=== PATIENT | female | born 1955 | race Caucasian/White ===

== ENCOUNTER → 2016-10-31 | Outpatient (CLI) | payer OTHER | LOC: FIMAGING 12:25 | DX: Z12.31 Encounter for screening mammogram for malignant neoplasm of breast (principal) | CPT/HCPCS: G0202 ==

== ENCOUNTER → 2017-04-03 | Outpatient (CLI) | payer OTHER | LOC: FIMAGING 10:55 | PROVIDERS: ATTEND Specialist | DX: R05 Cough (principal); M47.892 Other spondylosis, cervical region; M43.12 Spondylolisthesis, cervical region ==

== ENCOUNTER 2017-08-23 12:06 | Observation (INO) | payer OTHER ==
--- NOTE | 2017-08-23 12:20 | EDPHY ---
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 Started feeling bad on Thursday 5 days ago with feeling shaky and having chills followed by a progressively worsening cough. She was started on Tamiflu on Thursday morning by her but she presents today with worsening cough and shortness of breath. Symptoms are severe and worse with exertion. Associated with fever and chills and headache sore throat nausea and decreased oral intake. Not better with Tamiflu. REVIEW OF SYSTEMS: Eye: no change in vision ENT: HPI no ear symptoms Cardiac: no chest pain or syncope Pulmonary: HPI Abdomen: no vomiting, diarrhea, abdominal pain, decreased oral intake Musculoskeletal: Diffuse myalgias Skin: no rash Neuro: no headache Constitutional: Fever and chills : no urinary symptoms A comprehensive 10 point review of systems is otherwise negative aside from elements mentioned in the history of present illness. PAST MEDICAL HISTORY: Asthma Social history: Nonsmoker, nurse, no recent foreign travel General Appearance: Alert and conversant, cooperative. Eyes: No scleral icterus. ENT, Mouth: Normal mucous membranes. No trismus, slight pharyngeal erythema, no exudate Respiratory: Bilateral expiratory wheezes without focal sounds. Speaks in full sentences. No stridor. Cardiovascular: Regular rate and rhythm. Gastrointestinal: Abdomen is soft and non tender. Neurological: Alert, face symmetric, normal motor and sensory in extremities. Skin: Warm and dry, no rashes. Musculoskeletal: No neck stiffness. No calf tenderness. Psychiatric: Not agitated. Emergency Department course/MDM: Patient noted to be febrile and hypoxemic. Plan for lactate, blood cultures, chest x-ray, respiratory pathogen panel, IV fluid hydration. She will be treated for wheezing with IV Solu-Medrol and DuoNeb and albuterol nebulizer treatment. 1300: Left lower lobe pneumonia, will admit with ceftriaxone and azithromycin. Has SIRS criteria but not severe sepsis. Discussed with Parker Pineda. Admission for pneumonia with hypoxemia and severe wheezing. Presumed community- acquired infection. Smoking Status: Never smoked Constitutional: Initial Vital Signs Temperature (C) 38.4 C H 08/23/17 12:10 Heart Rate 114 H 08/23/17 12:10 Respiratory Rate 20 08/23/17 12:10 Blood Pressure 116/91 H 08/23/17 12:10 O2 Sat (%) 87 L 08/23/17 12:10 O2 Delivery Mode Nasal Cannula O2 (L/minute) 6 Allergies/Adverse Reactions: SEASONAL Allergy (Mild, Uncoded 08/23/17 12:09) Congestion Home Medications: Medication Instructions Recorded Albuterol 08/23/17 Symbicort 80-4.5 Mcg Inhaler 08/23/17 Medical Decision Making - Diagnostics Imaging Results: Imaging Impressions Chest X-Ray 08/23/17 12:36 Impression: Left lower lobe and lingular pneumonia. Imaging: I viewed and interpreted images myself Differential Diagnosis: Differential considered including but not limited to influenza, pneumonia, bronchitis, asthma exacerbation. - Data Points Laboratory Results: Laboratory Results 08/23/17 12:33 08/23/17 12:33 08/23/17 08/23/17 08/23/17 12:33 12:33 12:33 WBC RBC Hgb Hct MCV MCH MCHC RDW Plt Count MPV Neut % (Auto) Lymph % (Auto) Dixon % (Auto) Eos % (Auto) Baso % (Auto) Nucleat RBC Rel Count Absolute Neuts (auto) Absolute Lymphs (auto) Absolute Monos (auto) Absolute Eos (auto) Absolute Basos (auto) Absolute Nucleated RBC Immature Gran % Immature Gran # PT 13.4 SEC SEC (12.0-15.0) INR 1.00 (0.83-1.16) APTT 31.7 SEC SEC (23.0-38.0) VBG Lactic Acid 1.5 mmol/L mmol/L (0.7-2.1) Sodium 139 mEq/L mEq/L (134-144) Potassium 4.6 mEq/L mEq/L (3.5-5.2) Chloride 100 mEq/L mEq/L (97-110) Carbon Dioxide 24 mEq/l mEq/l (22-31) Anion Gap 15 mEq/L mEq/L (8-16) BUN 12 mg/dL mg/dL (7-23) Creatinine 0.7 mg/dL mg/dL (0.6-1.0) Estimated GFR > 60 Glucose 131 mg/dL H mg/dL (70-100) Calcium 9.2 mg/dL mg/dL (8.5-10.4) Total Bilirubin 0.8 mg/dL mg/dL (0.1-1.4) Specimen Hemolysis 115 08/23/17 12:33 WBC 5.91 10^3/uL 10^3/uL (3.80-9.50) RBC 4.24 10^6/uL 10^6/uL (4.18-5.33) Hgb 13.2 g/dL g/dL (12.6-16.3) Hct 37.3 % L % (38.0-47.0) MCV Pending MCH Pending MCHC Pending RDW Pending Plt Count 207 10^3/uL 10^3/uL (150-400) MPV Pending Neut % (Auto) Pending Lymph % (Auto) Pending Dixon % (Auto) Pending Eos % (Auto) Pending Baso % (Auto) Pending Nucleat RBC Rel Count Pending Absolute Neuts (auto) Pending Absolute Lymphs (auto) Pending Absolute Monos (auto) Pending Absolute Eos (auto) Pending Absolute Basos (auto) Pending Absolute Nucleated RBC Pending Immature Gran % Pending Immature Gran # Pending PT INR APTT VBG Lactic Acid Sodium Potassium Chloride Carbon Dioxide Anion Gap BUN Creatinine Estimated GFR Glucose Calcium Total Bilirubin Specimen Hemolysis Medications Given: Discontinued Medications Albuterol (Proventil Neb) 3 ml IH EDNOW ONE Stop: 08/23/17 12:37 Last Admin: 08/23/17 12:49 Dose: 3 ml Albuterol/Ipratropium (Duoneb) 3 ml IH EDNOW ONE Stop: 08/23/17 12:37 Last Admin: 08/23/17 12:49 Dose: 3 ml Sodium Chloride (Ns) 1,000 mls @ 0 mls/hr IV ONCE ONE; Wide Open PRN Reason: Protocol Stop: 08/23/17 12:37 Last Admin: 08/23/17 12:49 Dose: 1,000 mls Azithromycin 500 mg/ Dextrose 255 mls @ 255 mls/hr IV EDNOW ONE PRN Reason: Protocol Stop: 08/23/17 13:54 Last Admin: 08/23/17 13:55 Dose: 255 mls Ceftriaxone Sodium/Dextrose (Rocephin 1 Gm (Premix)) 50 mls @ 100 mls/hr IV EDNOW ONE PRN Reason: Protocol Stop: 08/23/17 13:23 Last Admin: 08/23/17 13:04 Dose: 50 mls Sodium Chloride (Ns) 2,200 mls @ 4,400 mls/hr 30 ml/kg infuse over 30 min ( 2200 ml) IV EDNOW ONE PRN Reason: Protocol Stop: 08/23/17 13:24 Last Admin: 08/23/17 13:06 Dose: 2,200 mls Methylprednisolone Sodium Succinate (Solu-Medrol) 125 mg IVP EDNOW ONE Stop: 08/23/17 12:37 Last Admin: 08/23/17 12:49 Dose: 125 mg Departure - Departure Disposition: [facility] Acute Clinical Impression: Pneumonia Qualifiers: Pneumonia type: due to unspecified organism Laterality: left Lung location: lower lobe of lung Qualified Code(s): J18.1 - Lobar pneumonia, unspecified organism Exacerbation of asthma Qualifiers: Asthma severity: moderate Asthma persistence: unspecified Qualified Code(s): J45.901 - Unspecified asthma with (acute) exacerbation Condition: Good
[2017-08-23] MEDS ORDERED: ONDANSETRON 4 MG/2 ML VIAL ONE (12:28)
[2017-08-23] MEDS ORDERED: methylPREDNISolone SOD SUCC 125 MG/2 ML VIAL IVP ONE (12:36)
[2017-08-23] MEDS ORDERED: ALBUTEROL 3 ML DEYVIAL IH ONE (12:36)
[2017-08-23] MEDS ORDERED: IPRATROPIUM/ALBUTEROL 3 ML DEYVIAL IH ONE (12:36)
[2017-08-23] MEDS ORDERED: NS 1,000 ML IV ONE (12:36)
[2017-08-23 12:47] LABS: PLATELET COUNT 207 10^3/uL (150-400)
[2017-08-23] MEDS ORDERED: NS 2,200 ML IV ONE (12:55)
[2017-08-23] MEDS ORDERED: AZITHROMYCIN IV 500 MG in D5W 250 ML IV ONE (12:55)
[2017-08-23 13:02] LABS: PROTIME(PATIENT) 13.4 SEC (12.0-15.0)
[2017-08-23] MEDS ORDERED: ALBUTEROL 3 ML DEYVIAL IH PRN (15:09)
[2017-08-23] MEDS ORDERED: IBUPROFEN 600 MG TAB PO PRN (15:20)
[2017-08-23] MEDS ORDERED: ONDANSETRON 4 MG/2 ML VIAL IVP PRN (15:20)
[2017-08-23] MEDS ORDERED: ONDANSETRON DISINTEGRATING 4 MG TAB PO PRN (15:20)
[2017-08-23] MEDS ORDERED: ACETAMINOPHEN 325 MG TAB PO PRN (15:20)
[2017-08-23] MEDS ORDERED: ZOLPIDEM TARTRATE 5 MG TAB PO PRN (15:20)
[2017-08-23] MEDS ORDERED: LORazepam 0.5 MG TAB PO PRN (15:20)
[2017-08-23] MEDS ORDERED: NS W/ 20 KCl/L 1,000 ML IV SCH (15:30)
--- NOTE | 2017-08-23 16:01 | GHP ---
[f rep st] HISTORY AND PHYSICAL DATE OF ADMISSION: 08/23/2017 CHIEF COMPLAINT: Cough and shortness of breath. HISTORY OF PRESENT ILLNESS: 61-year-old female, who is a nurse at [employer], who notes approximately 5 days ago, she began having chills and shaking, followed by a progressive developed cough. Four days prior to admission she started Tamiflu and has completed the course of Tamiflu today. In the last 4 days, she has continued to have a worsening cough and shortness of breath, despite the use of a Symbicort inhaler and the Tamiflu. She has associated fevers, chills and a sore throat and decreased oral intake. There is no nausea or vomiting. She denies chest pain, nausea, vomiting, although she does have a loss of appetite. There is no abdominal pain or pleuritic chest pain. She does have a slight sore throat. There has been no skin rash or joint disorders. PAST MEDICAL HISTORY: She has had a history of asthma and some allergies for the last year. She was treated with bronchodilators, but then the problem seemed to resolve in the last 6 months. She has not used a bronchodilator until this acute episode, when she began using a Symbicort inhaler without relief. There is no history of high blood pressure, diabetes, or renal problems. REVIEW OF SYSTEMS: A 10-point review of systems is otherwise negative, except as noted in the HPI. 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 The patient herself is a nonsmoker and does drink some alcohol. MEDICATIONS: Noted in the EMR. FAMILY HISTORY: Positive in that the patient's sister has severe asthma. There is no history of coronary disease. PHYSICAL EXAMINATION: GENERAL: This is a pleasant, alert female. Reports she feels much better now, post bronchodilator therapy, than she did when she arrived. VITAL SIGNS: Now are normal. She was febrile on admission with an increased respiratory rate and mild high blood pressure and hypoxemia, consistent with a SIRS syndrome. HEENT: Otherwise normal. Very slight injected throat. NECK: Supple without meningismus. LUNGS: Have harsh breath sounds overall with very few scattered expiratory wheezes. She is moving good air at this time and not in respiratory distress. HEART: Singular S1 and S2. There is a systolic ejection murmur heard at the base of the heart without gallop rhythm or AI. ABDOMEN: Nontender, benign, without masses, tenderness, or organomegaly. EXTREMITIES: No edema, cyanosis, clubbing. Joints are without inflammation. SKIN: No rashes are noted. NEUROLOGIC: Symmetric and normal. LABORATORY: WBC is normal with a right-shifted differential, with an increase in number of lymphocytes. Coagulations normal. ABG showed a lactic acid normal at 1.5, and a BMP is normal, except for slight elevated nonfasting glucose of 131. Chest x-ray, to my reading, shows a left lower lobe infiltrate with normal- sized heart, and no signs of consolidation. The x-ray was reviewed on the PACS system by myself. A respiratory panel is pending, as are 2 blood cultures. ASSESSMENT: 1. Acute left lower lobe pneumonia. Probably viral in origin and possibly of mixed character. The patient has completed a course of Tamiflu without improvement, but her lack of improvement may be more due to asthma than it is to of a failure of an antiviral agent. Despite that, she does have an active infiltrate, was febrile on admission, yet has a right-shifted white count. She will be placed on Rocephin and azithromycin and given intensive bronchodilator treatment along with steroids. Currently, with that regimen within the last 8 hours, the patient is significantly improved and will continue that therapy. 2. Acute asthma exacerbation with acute viral and/or bacterial pneumonitis. As the patient improves, and her steroids are tapered, we could restart her Symbicort, so long as she can take a deep enough inhalation to use the inhaler effectively. I also suggest she be discharged on a tapering dose of steroids. At this dictation, the respiratory panel is pending and should be checked further. Should she worsen, we could continue her dose of Tamiflu. Code status is full. DVT prophylaxis will be with early ambulation. If she continues to become ill, then Lovenox should be started. Her power of attorney at law is her . /[id number]/MODL MTDD
[2017-08-23] MEDS: ALBUTEROL 3 ML DEYVIAL IH SCH ×2 (17:41→21:59)
[2017-08-23] MEDS: methylPREDNISolone SOD SUCC 40 MG/ML VIAL IVP SCH (22:31)
[2017-08-24] MEDS: ALBUTEROL 3 ML DEYVIAL IH SCH ×6 (01:28→21:49)
[2017-08-24 05:29] LABS: PLATELET COUNT 206 10^3/uL (150-400)
[2017-08-24] MEDS: methylPREDNISolone SOD SUCC 40 MG/ML VIAL IVP SCH ×2 (06:03→14:52)
[2017-08-24] MEDS ORDERED: AZITHROMYCIN IV 500 MG in D5W 250 ML IV SCH (09:00)
--- NOTE | 2017-08-24 10:45 | ASMTCASEMG ---
Living Arrangements What is your living Answers: With Spouse arrangement? Who do you live with? Type Of Residence What kind of residence do Answers: House you live in? Discharge Plan Comments Coordination Status Comments Notes: Patient is a 61yo female who was admitted for acute left lower lobe pneumonia and an acute asthma exacerbation. The patient completed a course of tamiflu without improvement. No therapies have been ordered. Patient will likely d/c home independent. D/C needs TBD. CM will follow. Date Signed: 08/24/2017 10:44 AM Electronically Signed By:Adriana Patel LCSW
--- NOTE | 2017-08-24 15:25 | SOAPPROG ---
SOAP Progress Note Assessment/Plan: LLL PNA, improving -IV abx, change azithro to PO -O2 support still needed -+influenza and falcon virus, on resp precautions -change steroids to PO -finished antivirals Asthma exacerbation, with hypoxia -see above Normocytic anemia -will need recheck as o/p PCP- Vickey GRISSOM prophy Dispo- hopeful dc in AM (maybe with home O2) FULL CODE Subjective: Feeling better, but still with cough/some SOB. No v/d/abd pain. Objective: Vital Signs Temp Pulse Resp BP Pulse Ox 99.3 F 93 16 127/74 H 94 08/24/17 10:58 08/24/17 10:58 08/24/17 10:58 08/24/17 10:58 08/24/17 10:58 Microbiology 08/23/17 13:07 Respiratory Panel (PCR) - Final Nasal, Sinus - Swab Influenza Virus Type A H3 Coronavirus Hku1 Detected Laboratory Results 08/24/17 04:20 08/23/17 08/24/17 08/25/17 11:59 11:59 11:59 Intake Total 1800 Balance 1800 PT 13.4 SEC (12.0-15.0) 08/23/17 12:33 INR 1.00 (0.83-1.16) 08/23/17 12:33 - Pending Discharge Pending Discharge Within 48 Hours: Yes Pending Discharge Date: 08/26/17 Pending Discharge Time: 11:00 Physical Exam - Physical Exam General Appearance: WD/WN, alert, no apparent distress Respiratory: crackles, other (coughing, nader with deep breaths), No respiratory distress, No rhonchi, No wheezing Cardiac/Chest: regular rate, rhythm, No edema Abdomen: non-tender, soft Skin: warm/dry Neuro/Psych: alert, normal mood/affect, No cognition abnormalities, No speech abnormalities ICD10 Worksheet Patient Problems: Problems Problem Status Onset Exacerbation of asthma Acute Pneumonia Acute
[2017-08-25] MEDS: ALBUTEROL 3 ML DEYVIAL IH SCH ×4 (02:01→13:24)
--- NOTE | 2017-08-25 08:25 | PDHOMEO2F ---
Home Oxygen Face to Face Home Orders: I certify that a physician or a nurse practitioner or physician's healthcare administrative assistant has had a [id number] encounter with this patient on the date of this order due to the diagnosis listed, which relates to the primary reason the patient requires home oxygen. Alternative treatments have been tried, or considered, and deemed ineffective. It is anticipated that supplemental oxygen will result in improvement with treatment. Home oxygen qualifying diagnosis: hypoxia, pneumonia SpO2 on room air (%): 87 Frequency of home oxygen needed: continuous Home oxygen liters per minute: 1L Home oxygen delivery device: nasal cannula Concentrator: Yes E-tanks for mobility and back up: Yes If ordering portable O2, is the patient mobile in the home?: Yes I certify that, based on these findings, the home oxygen is medically necessary for this patient for the following length of time. Length of time home oxygen needed: 1 month
[2017-08-25] MEDS ORDERED: predniSONE 20 MG TAB PO SCH (09:00)
[2017-08-25] MEDS ORDERED: AZITHROMYCIN 250 MG TAB PO SCH (09:00)
[2017-08-25] MEDS ORDERED: PANTOPRAZOLE SODIUM 40 MG TAB PO SCH (09:30)
[2017-08-25 11:51] VITALS: BP 126/74; TEMP 98.1
[2017-08-25 13:37] VITALS: PULSE 86; RESP 18; O2SAT 92
--- NOTE | 2017-08-25 16:23 | ASDISCHSUM ---
Discharge Information Plan Status:Home with No Needs Medically Cleared to Leave:08/24/2017 Discharge Date:08/25/2017 01:43 PM CM D/C Disposition: ADT D/C Disposition:Home, Routine, Self-Care Projected Discharge Date:08/25/2017 12:00 AM Transportation at D/C: Discharge Delay Reason: Follow-Up Date:08/25/2017 12:00 AM Discharge Slot: Final Diagnosis: Placement Information Patient Contact Information Contact Name:DAVID Relationship: Address:[address] City:[place] Alternate Phone: State/Zip Code:[place] [address] Email: Financial Information Financial Class:[facility] Primary Plan Desc:[facility] Primary Plan Number:[id number] Secondary Plan Desc: Secondary Plan Number: Assessment Information [facility] Initial CM Assessment Living Arrangements What is your living Answers: With Spouse arrangement? Who do you live with? Type Of Residence What kind of residence do Answers: House you live in? Discharge Plan Comments Coordination Status Comments Notes: Patient is a 61yo female who was admitted for acute left lower lobe pneumonia and an acute asthma exacerbation. The patient completed a course of tamiflu without improvement. No therapies have been ordered. Patient will likely d/c home independent. D/C needs TBD. CM will follow. Date Signed: 08/24/2017 10:44 AM Electronically Signed By:Adriana Patel LCSW Intervention Information
--- NOTE | 2017-08-26 09:52 | GDS ---
[f rep st] DISCHARGE SUMMARY SERVICE: [facility] Hospitalist. CONSULT: None. PROCEDURE: Chest x-ray showing left lower lobe and lingular pneumonia. ADMISSION DIAGNOSES: 1. Left lower lobe and lingular pneumonia. 2. Acute hypoxic respiratory failure requiring O2 supplementation. 3. Acute asthma exacerbation. HOSPITAL COURSE: The patient came into the emergency department after having worsening cough and sunil rtness of breath. She had been previously treated for influenza with Tamiflu. She has a known histo ry of asthma and intermittent use of her controller medications. She was found to have a left lower lobe and lingular pneumonia, and a significant hypoxia with an O2 saturation of 87 on presentation. She was admitted to the floor for IV steroids, IV hydration, oxygen supplementation, and IV Rocephin and azithromycin. Nebulizer treatments and a pulmonary toilet were also started. Over the course of her stay, her symptoms greatly improved. On the day of discharge, she was feeling much better but w as still requiring a small amount of oxygen with ambulation, 1 L. She felt well enough to go home wi th home oxygen. This was arranged at 1 L, instructed to use until seen by followup with her primary care provider. She was given prescriptions for azithromycin and Omnicef to finish a complete seven-d ay course of antibiotics. She was also given prednisone 10 mg to taper gradually. She was instructe d to follow up with her primary care provider, Dr. Dorothy Hurd within the next several days. 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 DISCHARGE MEDICATIONS: Tylenol as needed, azithromycin 500 mg daily #4, Omnicef 300 mg twice a day # 8, prednisone 10 mg to use of slow taper (she was transitioned to 40 mg of prednisone daily orally on the day prior to discharge), albuterol, Symbicort. If any time she has return of fever, worsening shortness of breath, increasing cough, or other concer ns, she should return immediately either to her primary care provider or to the hospital for re-evalu ation. /[id number]/MODL
== END 2017-08-25 13:43 | disposition home or self-care (01) ==
LOC: F3E 14:07
PROVIDERS: ADMIT Internal Medicine Pulmonary Disease; ATTEND Internal Medicine Pulmonary Disease
DX: J18.1 Lobar pneumonia, unspecified organism (principal); J96.01 Acute respiratory failure with hypoxia; J45.901 Unspecified asthma with (acute) exacerbation
CPT/HCPCS: 71020; G0378; 96374; J0456; J0696; J2405; J2920; J2930; J7512; J7613

== ENCOUNTER → 2018-12-27 | Outpatient (CLI) | payer OTHER | LOC: FIMAGING 11:54 | PROVIDERS: ATTEND Family Medicine | DX: Z12.31 Encounter for screening mammogram for malignant neoplasm of breast (principal); R92.8 Other abnormal and inconclusive findings on diagnostic imaging of breast ==

== ENCOUNTER → 2019-01-12 | Outpatient (CLI) | payer OTHER | LOC: FIMAGING 08:35 | PROVIDERS: ATTEND Family Medicine | DX: R92.8 Other abnormal and inconclusive findings on diagnostic imaging of breast (principal) ==